=== PATIENT | male | born 1955 | race Caucasian/White ===

== ENCOUNTER 2018-01-15 23:22 | Emergency (ER) | payer MEDICAID ==
[2018-01-15 23:29] VITALS: BMI 26.5
--- NOTE | 2018-01-16 01:05 | DR.BITE ---
HPI - Time Seen Time seen: 01:50 - PCP Primary Care Physician: NATALIIA - HPI Comment HPI Comment: PATIENT APPLIED BLEECH TO LESION. REDNESS SPREADING AND PAIN GETTING WORSE. - Complaint/Symptoms Chief Complaint Doctor Comments: REDNESS AND PAIN RT NECK DUE TO POSSIBLE SPIDER BITE TIMES 2 DAYS. Chief Complaint:: "I THINK I GOT BIT BY A SPIDER YESTERDAY AFTERNOON. I PUT BLEACH ON IT.". HOLDING RIGHT NECK WITH HANKCURCHEIF. - Nurses notes reviewed Nurses Notes Review: Yes - Source History Provided: Patient - Mode of Arrival Mode of Arrival: Ambulatory - Duration Duration: Constant Duration: Days - Location Location: Neck - Timing Onset of Chief Complaint: 01/14/18 ago: Days - Context Caused by: Spider Symptoms: Pruritis, Rash, Redness, Papule wound Immunization Status of Animal: Not Applicable - Severity Pain: Moderate Puritis Severity: Moderate SOB Severity: None - Associated signs and symptoms Associated signs and symptoms: Redness, Swelling PMH - PMH Past Medical History: Yes Past Medical History: Hypertension Past Surgical History: Yes Surgical History: Cholecystectomy - Family History History of Family Medical Conditions: Yes Family Medical History: Cancer, Hypertension - Social History Does patient currently use any type of tobacco product: No Have you used tobacco products in the last 12 months: No Type of Tobacco Use: None Does any household member use tobacco: No Alcohol Use: None Do you use any recreational Drugs:: No Lives With: Alone Lives Where: Home - infectious screening Have you traveled outside the country in the last 6 months?: No Isolation: Standard ROS - Review of Systems Constitutional: No Symptoms Reported Eyes: No Symptoms Reported ENTM: No Symptoms Reported Respiratoy: No Symptoms Reported Cardiovascular: No Symptoms Reported Gastrointestinal/Abdominal: No Symptoms Reported Genitourinary: No Symptoms Reported Neurological: No Symptoms Reported Musculoskeletal: Neck Pain, Right Integumentary: Rash (RT NECK WITH PUSTULE THAT IS DRAINED AND REDNESS RT NECK THAT IS WARM AND TENDER.) Hematologic/Lymphatic: No Symptoms Reported Endocrine: No Symptoms Reported All Other Systems: Reviewed and Negative PE - Vital Signs Vital Signs: Temp Pulse Pulse Resp BP BP BP 01/16/18 01:19 82 166/95 01/15/18 23:24 99.0 F 75 18 184/91 06/08/16 13:35 146/85 05/28/15 01:00 189/92 08/11/13 20:17 119/82 Pulse Ox 01/16/18 01:19 99 01/15/18 23:24 96 06/08/16 13:35 05/28/15 01:00 08/11/13 20:17 - Constitutional Limitations: No Limitations General Appearance: Alert - Head Head Exam: Normal Inspection - Eyes Eye exam: Normal Appearance - ENT ENT Exam: Normal External Ear Exam - Neck Neck Exam: Trachea Midline, Tenderness (AND REDNESS RT NECK.) - Chest Chest Inspection: Symmetric Chest Wall Rise - Respiratory Respiratory Exam: Normal Lung Sounds Bilat Respiratory Exam: Bilateral Clear to Auscultation - Cardiovascular Cardiovascular Exam: Regular Rate, Normal Rhythm, Normal Heart Sounds - Abdominal Exam Abdominal Exam: Normal Bowel Sounds, Soft. negative: Tenderness - Extremities Extremities Exam: Normal Inspection - Back Back Exam: Normal Inspection - Neurologic Neurological Exam: Alert, Oriented X3 - Skin Skin Exam: Erythema Type of Lesion: Rash Distribution: Neck Description: Tenderness, Papular MDM - Differential Diagnosis Differential Diagnosis: Cellulitis Course - Treatment Treatment: SEE ORDERS. - Education/Counseling Education/Counseling: Patient, Education Educated On: Diagnosis, Needs for Follow Up - Diagnosis Discharge Problem: Cellulitis Qualifiers: Site of cellulitis: neck Qualified Code(s): L03.221 - Cellulitis of neck - Discharge Plan Disposition: 01 HOME, SELF-CARE Condition: Stable Prescriptions: Ibuprofen [MOTRIN TAB 600 MG *] 600 mg PO TID PRN #20 tab PRN Reason: Pain/Inflammation Sulfamethoxazole-Trimethoprim [BACTRIM DS TAB 800/160 MG *] 1 tab PO BID #20 tab - Follow ups/Referrals Follow ups/Referrals: FLAVIA WILLIAM [Primary Care Provider] - 01/16/18 - Instructions Instructions: Cellulitis, Adult, [id number] Additional Instructions: RETURN TO ED IF WORSE.
[2018-01-16] MEDS ORDERED: BACTRIM DS TAB PO ONE ×2 (01:06→01:10)
[2018-01-16] MEDS ORDERED: MOTRIN TAB 600 MG PO ONE ×2 (01:08→01:10)
[2018-01-16 01:20] VITALS: BP 166/95
== END 2018-01-16 01:19 | disposition home or self-care (01) ==
LOC: ER 23:34
DX: L03.221 Cellulitis of neck (principal)
CPT/HCPCS: 99282

== ENCOUNTER 2021-07-27 15:30 | Inpatient (IN) ==
[2021-07-27 16:00] VITALS: BMI 20.3
--- NOTE | 2021-07-27 17:41 | DR.AMS ---
HPI Time Seen Time Seen by Provider: 07/27/21 17:16 PCP Primary Care Physician: pascual frazier and daniel spaulding HPI Comment HPI Comment: Pt. is a 65 y/o male who was arrived via EMS as family could no longer take care of him and would like him placed in a fdc. He has a hx. of cancer (? primary of colon) with metastasis. He has no c/o currently and denies any distress. Complaint Chief Complaint:: verbal interaction limited as pt is extremely weak vocally. he has a history of ca with mets. he is on o2 at home and has not ate for several days. ems states that family has expressed that they are not able to provide care for this patient at home at this time. pt does have visiting nurses but is not under hospice Self Treatment fo Chief Complaint: takes his meds and uses home o2 COVID-19 Coronavirus risk:travel/contact w/high risk person: No Has patient experienced Coronavirus symptoms: No Reviewed Nurses Notes Reviewed: Yes Source History Provided: Patient and EMS Mode of Arrival Mode of Arrival: EMS Timing Onset of Chief Complaint: 07/27/21 Symptom Onset: Unknown PMH PMH Past Medical History: Yes Past Medical History: Hypertension Past Medical History Comment: cancer and mets Past Surgical History: Yes Surgical History: Abdominal Surgery, Cholecystectomy and Other Past Surgical History Comment: port cath to the right chest Family History History of Family Medical Conditions: Yes Family Medical History: Hypertension Social History Type of Tobacco Use: None Alcohol Use: None Do you use any recreational Drugs:: No Lives With: Family Lives Where: Home Travel Risk Coronavirus risk:travel/contact w/high risk person: No Has patient experienced Coronavirus symptoms: No Infectious screening In the last 2 months have you had wt loss of >10#?: NO Have you traveled outside the country in the last 6 months?: No Isolation: Standard ROS Review of Systems Constitutional: Weakness Eyes: No Symptoms Reported ENTM: No Symptoms Reported Respiratoy: No Symptoms Reported Cardiovascular: No Symptoms Reported Gastrointestinal/Abdominal: No Symptoms Reported Genitourinary: No Symptoms Reported Neurological: No Symptoms Reported Musculoskeletal: No Symptoms Reported Integumentary: No Symptoms Reported Hematologic/Lymphatic: No Symptoms Reported Endocrine: No Symptoms Reported Psychiatric: No Symptoms Reported PE Vitals Vital Signs: Temp Pulse Resp BP BP BP Pulse Ox 07/27/21 15:50 98.0 F 86 24 126/81 91 L 07/22/21 16:46 122/73 05/18/21 20:19 145/70 04/21/21 19:17 120/87 General Limitations: No Limitations General Appearance: Alert and In No Apparent Distress Head Head Exam: Normal Inspection, Atraumatic and Normocephalic Eyes Eye exam: Normal Appearance and EOMI ENT ENT Exam: Normal Exam, Normal Oropharynx, Normal External Ear Exam and Mucous Membranes Moist Neck Neck Exam: Normal Inspection, Full ROM and Trachea Midline Chest Chest Inspection: Normal Inspection and Symmetric Chest Wall Rise Respiratory Respiratory Exam: Normal Lung Sounds Bilat Cardiovascular Cardiovascular Exam: Regular Rate, Normal Rhythm, Normal Heart Sounds, +S1 and +S2 Abdominal Exam Abdominal Exam: Normal Inspection, Normal Bowel Sounds, Soft and Other (He has a colostomy in the LLQ area. ) Extremities Extremities Exam: Normal Inspection Back Back Exam: Normal Inspection and Full ROM Neurological Neurological Exam: Alert and Oriented X3 Psychological Psychiatric Exam: Normal Mood and Flat Affect Skin Skin Exam: Intact and Normal Color COURSE Reevaluation 1st: Unchanged Education/Counseling Education/Counseling: Patient, Education and Counseling Educated On: Treatment, Diagnosis, Prognosis and Needs for Follow Up ROR Labs Reviewed Result Diagrams: 07/27/21 18:09 07/27/21 18:09 Laboratory: WBC 8.3 X10^3/uL (3.6-10.0) 07/27/21 18:09 RBC 5.60 X10^6/uL (4.7-6.0) 07/27/21 18:09 Hgb 16.0 g/dL (13.5-18.0) 07/27/21 18:09 Hct 48.1 % (42.0-54.0) 07/27/21 18:09 MCV 85.9 fL (80.0-100.0) 07/27/21 18:09 MCH 28.6 pg (27.0-34.0) 07/27/21 18:09 MCHC 33.3 g/dL (33.0-35.0) 07/27/21 18:09 RDW 16.2 % (11.6-16.5) 07/27/21 18:09 Plt Count 135 X10^3/uL (150.0-450.0) L 07/27/21 18:09 MPV 8.9 fL (7.4-11.0) 07/27/21 18:09 Neut % (Auto) 86.2 % (42.0-75.0) H 07/27/21 18:09 Lymph % (Auto) 7.0 % (21.0-51.0) L 07/27/21 18:09 [place] % (Auto) 4.9 % (0.0-13.0) 07/27/21 18:09 Eos % (Auto) 0.8 % (0.9-2.9) L 07/27/21 18:09 Baso % (Auto) 1.1 % (0.2-1.0) H 07/27/21 18:09 Neut # (Auto) 7.1 x10^3/uL (2.2-4.8) H 07/27/21 18:09 Lymph # (Auto) 0.6 X10^3/uL (1.3-2.9) L 07/27/21 18:09 [place] # (Auto) 0.4 x10^3/uL (0.3-0.8) 07/27/21 18:09 Eos # (Auto) 0.1 x10^3/uL (0.0-0.2) 07/27/21 18:09 Baso # (Auto) 0.1 X10^3/uL (0.0-0.1) 07/27/21 18:09 Absolute Nucleated RBC 0.1 /100WBC 07/27/21 18:09 Sodium 140 mmol/L (136-145) 07/27/21 18:09 Corrected Sodium TNP 07/27/21 18:09 Potassium 4.0 mmol/L (3.5-5.1) 07/27/21 18:09 Chloride 103 mmol/L (98-107) 07/27/21 18:09 Carbon Dioxide 34.9 mmol/L (21-32) H 07/27/21 18:09 BUN 17 mg/dL (7-18) 07/27/21 18:09 Creatinine 0.92 mg/dL (0.70-1.30) 07/27/21 18:09 Est GFR (MDRD) Af Amer > 60 (>60) 07/27/21 18:09 Est GFR (MDRD) Non-Af > 60 (>60) 07/27/21 18:09 Glucose 107 mg/dL (65-99) H 07/27/21 18:09 Calcium 10.3 mg/dL (8.5-10.1) H 07/27/21 18:09 Corrected Calcium 11.7 mg/dL (8.5-10.1) H 07/27/21 18:09 Total Bilirubin 0.50 mg/dL (0.2-1.0) 07/27/21 18:09 AST 120 Units/L (15-37) H 07/27/21 18:09 ALT 40 Units/L (12-78) 07/27/21 18:09 Alkaline Phosphatase 654 Units/L (46-116) H 07/27/21 18:09 Total Protein 7.1 g/dL (6.4-8.2) 07/27/21 18:09 Albumin 2.3 g/dL (3.4-5.0) L 07/27/21 18:09 Globulin 4.8 g/dL (2.5-4.5) H 07/27/21 18:09 Albumin/Globulin Ratio 0.5 Ratio (1.1-2.1) L 07/27/21 18:09 Opioid Opioid Risk Tool Age (Pierre box if 16-45): No History of Preadolescent Sexual Abuse: No Total: 0 Total Score Risk Category: Low Risk Copyright: Panfilo JOHN predicting aberrant behaviors Diagnosis Discharge Problem: Adult failure to thrive Colon cancer Qualifiers: Colon location: unspecified part of colon Qualified Code(s): C18.9 - Malignant neoplasm of colon, unspecified ADDITIONAL NOTES Additional Notes Additional Notes: Name: Shantel DYER#: [id number]: [id number] : 1955Sex: MLocation: ER Order Number(s): [id number](s):CHEST, 1 VIEW Ordering Physician: MELVIN ISRAEL Primary Care: LARAD,None Service Date: 07/27/21 Service Time: 1735 CHEST, 1 VIEW HISTORY: AMS, FAILURE TO THRIVE Study: Single view of the chest. Comparison:August 24, 2020 Findings: The cardiomediastinal silhouette is normal. Bilateral interstitial prominence, possible early alveolar infiltrates. Findings COPD. Osseous structures demonstrate no acute abnormality. IMPRESSION: 1. Bilateral interstitial prominence and early alveolar infiltrates. Findings may represent atypical infection, including viral etiologies. Electronically signed by: MARLEY SCHAFFER (Jul 27, 2021 18:01:44) Report Electronically signed: 07/27/21 [id number] CC: Melvin Israel
--- NOTE | 2021-07-27 18:03 | RAD ---
CHEST, 1 VIEWHISTORY: AMS, FAILURE TO THRIVEStudy: Single view of the chest.Comparison:August 24, 2020Findings:The cardiomediastinal silhouette is normal. Bilateral interstitial prominence, possible early alveolar infiltrates. Findings COPD. Osseous structures demonstrate no acute abnormality.IMPRESSION:1. Bilateral interstitial prominence and early alveolar infiltrates. Findings may represent atypical infection, including viral etiologies.Electronically signed by: MARLEY SCHAFFER (Jul 27, 2021 18:01:44)
[2021-07-27 18:44] LABS: BASOPHILS # (AUTO) 0.1 X10^3/uL (0.0-0.1); BASOPHILS % (AUTO) 1.1 % (0.2-1.0); EOSINOPHILS # (AUTO) 0.1 x10^3/uL (0.0-0.2); EOSINOPHILS % (AUTO) 0.8 % (0.9-2.9); HEMATOCRIT 48.1 % (42.0-54.0); LYMPHOCYTES # (AUTO) 0.6 X10^3/uL (1.3-2.9); MEAN CORPUSCULAR HEMOGLOBIN 28.6 pg (27.0-34.0); MEAN CORPUSCULAR HGB CONC 33.3 g/dL (33.0-35.0); MEAN CORPUSCULAR VOLUME 85.9 fL (80.0-100.0); MEAN PLATELET VOLUME 8.9 fL (7.4-11.0); MONOCYTES # (AUTO) 0.4 x10^3/uL (0.3-0.8); MONOCYTES % (AUTO) 4.9 % (0.0-13.0); NEUTROPHILS # (AUTO) 7.1 x10^3/uL (2.2-4.8); NEUTROPHILS % (AUTO) 86.2 % (42.0-75.0); PLATELET COUNT 135 X10^3/uL (150.0-450.0); RED CELL DISTRIBUTION WIDTH 16.2 % (11.6-16.5); WHITE BLOOD COUNT 8.3 X10^3/uL (3.6-10.0)
[2021-07-27 18:46] LABS: ALANINE AMINOTRANSFERASE 40 Units/L (12-78); ALBUMIN 2.3 g/dL (3.4-5.0); ALKALINE PHOSPHATASE 654 Units/L (46-116); ASPARTATE AMINO TRANSFERASE 120 Units/L (15-37); BLOOD UREA NITROGEN 17 mg/dL (7-18); CALCIUM 10.3 mg/dL (8.5-10.1); CARBON DIOXIDE 34.9 mmol/L (21-32); CHLORIDE 103 mmol/L (98-107); COR CA(FOR HYPOALB) 11.7 mg/dL (8.5-10.1); CREATININE 0.92 mg/dL (0.70-1.30); SODIUM 140 mmol/L (136-145); TOTAL PROTEIN 7.1 g/dL (6.4-8.2); eGFR NON BLACK RACES > 60 (>60)
[2021-07-27] MEDS ORDERED: ATIVAN INJ 2 MG VIAL ONE (19:45)
[2021-07-27] MEDS ORDERED: ATIVAN INJ 2 MG VIAL IVP ONE (21:29)
[2021-07-27] MEDS: ROXICODONE TAB 15 MG PO PRN (22:42)
[2021-07-27] MEDS: COLACE CAP 100 MG PO SCH (22:43)
[2021-07-28] MEDS: ATIVAN TAB 1 MG PO PRN ×4 (00:06→18:25)
[2021-07-28] MEDS: ROXICODONE TAB 15 MG PO PRN ×3 (05:46→18:25)
[2021-07-28] MEDS ORDERED: PULMICORT NEB TX 0.5 MG NEB ONE (07:54)
[2021-07-28] MEDS: PULMICORT NEB TX 0.5 MG NEB SCH ×2 (08:00→19:45)
[2021-07-28] MEDS: BROVANA IN SCH ×2 (08:00→19:45)
[2021-07-28] MEDS ORDERED: PROTONIX TAB 40 MG PO SCH (09:00)
[2021-07-28] MEDS: COLACE CAP 100 MG PO SCH ×2 (11:45→21:07)
[2021-07-28] MEDS ORDERED: TUSSIONEX PENNKINETIC SUSP PO PRN (14:36)
[2021-07-28] MEDS: LOVENOX INJ 40 MG SYR SC SCH (17:07)
[2021-07-28] MEDS: ROBITUSSIN DM PO SCH ×3 (17:08→21:07)
--- NOTE | 2021-07-28 17:35 | DR.H&P ---
H&P - History & Physical for Day of: H&P Date: 07/27/21 - Chief Complaint Chief Complaint: AMS, DEHYDRATION, ADULT FAILURE TO THRIVE - History of Present Illness History of Present Illness: PT IS 65 WM ER ADMISSION WITH REPORTS PER EMS, PT HAS COLORECTAL CANCER WITH METS UNDER THE CARE OF HIS ELDERLY MOTHER. FAMILY REPORTS THEY CANNOT MEET HIS NEEDS AT HOME AND WISH TO SEEK NH PLACEMENT. PT HAD COVID PNEUMONIA ON ADMISSION. PT ADMITTED FOR TREATMENT OF ACUTE ILLNESS THEN PLACEMENT IN LTC FACILITY. - Past Medical History Past Medical History: Hypertension Additional Medical History: COLON CANCER - Past Surgical History Surgical History: Bowel Resection, Cholecystectomy, Other - Family History Family Medical History: Hypertension - Social History Does patient currently use any type of tobacco product: No Have you used tobacco products in the last 12 months: No Type of Tobacco Use: None Alcohol Use: None Drug Use: None - Medications Home Medications: acetaminophen [From Tylenol] Adverse Reaction (Verified 07/27/21 15:44) aspirin Adverse Reaction (Verified 07/27/21 15:44) cephalexin [From Keflex] Adverse Reaction (Verified 07/27/21 15:44) diphenhydramine [From Benadryl] Adverse Reaction (Verified 07/27/21 15:44) fentanyl Adverse Reaction (Verified 07/27/21 15:44) methadone Adverse Reaction (Verified 07/27/21 15:44) morphine Adverse Reaction (Verified 07/27/21 15:44) CONTINUE taking the following medications diazepam 10 mg PO TID PRN 07/27/21 [History] losartan 50 mg PO DAILY 07/27/21 [History] oxycodone 30 mg PO Q6H PRN 07/27/21 [History] - Review of Systems Constitutional: Weakness, Malaise Eyes: No Symptoms Reported ENT: No Symptoms Reported Respiratory: Shortness of Breath Cardiovascular: No Symptoms Reported Gastrointestinal: Other (APPETITE LOSS) Genitourinary: Incontinence Musculoskeletal: Other (MUSCLE WEAKNESS, ATROPHY) Skin: Other (POOR TURGOR) Neurological: Weakness, Confusion - Physical Exam Vital Signs: Temperature 98.2 F Pulse Rate [Right] 90 Pulse Rate 86 Respiratory Rate 16 Blood Pressure [Right Arm] 147/87 Blood Pressure [Left Arm] 145/70 Blood Pressure 126/81 O2 Sat by Pulse Oximetry 89 Oriented: Other (UNRESPONSIVE) Eyes: negative: Normal Ear: negative: Normal Nose: Normal Throat: Dry Respiratory: Diminished Throughout Cardiovascular: Normal. negative: Edema Auscultation: Bowel Sounds: Decreased Tenderness: negative: Rebound, Guarding Skin: Decreased Turgur Musculoskeletal: Motor Deficit, Sensory Deficit, Instability Psychiatric: Other (UNRESPONSIVE ON EXAM ) Speech Pattern: Aphasic - Assessment/Plan (1) Pneumonia due to COVID-19 virus Status: Acute Plan: ADMIT, IV HYDRATION WITH STRICT I&OS. IV ATBX, BC X2 ON ADMISSION. CXR ON ADMISSION, VERIFY HOME MEDICATION. VERIFY CODE STATUS, PHARMACY CONSULT FOR TPN. SUPPLEMENATL O2, CARDIAC MONITORING, RT. CASE MANAGEMENT CONSULT FOR NH PLACEMENT PER FAMILY REQUEST, RECOMMEND HOSPICE (2) Adult failure to thrive Status: Acute (3) Colon cancer Qualifiers: Colon location: unspecified part of colon Qualified Code(s): C18.9 - Malignant neoplasm of colon, unspecified Status: Acute (4) Emaciated Status: Acute - Allergies Allergies/Adverse Reactions: Allergies Allergy/AdvReac Type Severity Reaction Status Date / Time acetaminophen [From Tylenol] AdvReac Verified 07/27/21 15:44 aspirin AdvReac Verified 07/27/21 15:44 cephalexin [From Keflex] AdvReac Verified 07/27/21 15:44 diphenhydramine AdvReac Verified 07/27/21 15:44 [From Benadryl] fentanyl AdvReac Verified 07/27/21 15:44 methadone AdvReac Verified 07/27/21 15:44 morphine AdvReac Verified 07/27/21 15:44
--- NOTE | 2021-07-28 17:43 | PCM.PROG ---
Progress Note - Progress Note for Day of Date of Exam: 07/28/21 - Subjective Subjective: PT IS 65 WM ER ADMISSION WITH COVID 19 PNEUMONIA AND HYPOXIA, WEAKNESS WITH ADULT FAILURE TO THRIVE RELATED TO METASTATIC COLORECTAL CANCER. PT WAS UNRESPONSIVE THIS MORNING ON ASSESSMENT WITHOUT ANY MARKED RESPIRATORY DISTRESS. PT WAS ON NC FOR SUPPLEMENTAL O2, WITH O2 SAT 90%. BC OBTAINED ON ADMISSION, IV ATBX, IV HYDRATION. PHARMACY CONSULTED FOR TPN. FAMILY REQUESTING RESIDENTIAL PLACEMENT. PT IS EMACIATED WITHOUT RESPONSE TO PAIN OR VERBAL STIMULIS ON MORNING ROUNDS. RECOMMEND POSSIBLE HOSPICE PLACEMENT IF PT RECOVERS FROM ACUTE COVID PNEUMONIA. - Past Medical Family Social History Past Med/Fam/Surg Hx: No changes since H&P Allergies: Allergies acetaminophen [From Tylenol] Adverse Reaction (Verified 07/27/21 15:44) aspirin Adverse Reaction (Verified 07/27/21 15:44) cephalexin [From Keflex] Adverse Reaction (Verified 07/27/21 15:44) diphenhydramine [From Benadryl] Adverse Reaction (Verified 07/27/21 15:44) fentanyl Adverse Reaction (Verified 07/27/21 15:44) methadone Adverse Reaction (Verified 07/27/21 15:44) morphine Adverse Reaction (Verified 07/27/21 15:44) - Review of Systems ROS: No change since H&P - Vital Signs and I&O's Vital Signs: Temperature 98.2 F Pulse Rate [Right] 90 Pulse Rate 86 Respiratory Rate 16 Blood Pressure [Right Arm] 147/87 Blood Pressure [Left Arm] 145/70 Blood Pressure 126/81 O2 Sat by Pulse Oximetry 89 Intake and Output: Intake & Output 07/26/21 07/27/21 07/28/21 07/29/21 11:59 11:59 11:59 11:59 Intake Total 320 / 320 Output Total 3 / 3 Balance 317 / 317 - Physical Exam Oriented: Other (UNRESPONSIVE) Eyes: negative: Normal Ear: negative: Normal Nose: Normal Throat: Dry Respiratory: Diminished Cardiovascular: Normal. negative: Edema Auscultation: Bowel Sounds: Decreased Tenderness: negative: Rebound, Guarding Skin: Decreased Turgur Musculoskeletal: Motor Deficit, Sensory Deficit, Instability Psychiatric: Other (UNRESPONSIVE ON EXAM ) Speech Pattern: Aphasic - Laboratory and Diagnostics Result Diagrams: 07/27/21 18:09 07/27/21 18:09 Labs: Laboratory WBC 8.3 X10^3/uL (3.6-10.0) 07/27/21 18:09 RBC 5.60 X10^6/uL (4.7-6.0) 07/27/21 18:09 Hgb 16.0 g/dL (13.5-18.0) 07/27/21 18:09 Hct 48.1 % (42.0-54.0) 07/27/21 18:09 MCV 85.9 fL (80.0-100.0) 07/27/21 18:09 MCH 28.6 pg (27.0-34.0) 07/27/21 18:09 MCHC 33.3 g/dL (33.0-35.0) 07/27/21 18:09 RDW 16.2 % (11.6-16.5) 07/27/21 18:09 Plt Count 135 X10^3/uL (150.0-450.0) L 07/27/21 18:09 MPV 8.9 fL (7.4-11.0) 07/27/21 18:09 Neut % (Auto) 86.2 % (42.0-75.0) H 07/27/21 18:09 Lymph % (Auto) 7.0 % (21.0-51.0) L 07/27/21 18:09 [place] % (Auto) 4.9 % (0.0-13.0) 07/27/21 18:09 Eos % (Auto) 0.8 % (0.9-2.9) L 07/27/21 18:09 Baso % (Auto) 1.1 % (0.2-1.0) H 07/27/21 18:09 Neut # (Auto) 7.1 x10^3/uL (2.2-4.8) H 07/27/21 18:09 Lymph # (Auto) 0.6 X10^3/uL (1.3-2.9) L 07/27/21 18:09 [place] # (Auto) 0.4 x10^3/uL (0.3-0.8) 07/27/21 18:09 Eos # (Auto) 0.1 x10^3/uL (0.0-0.2) 07/27/21 18:09 Baso # (Auto) 0.1 X10^3/uL (0.0-0.1) 07/27/21 18:09 Absolute Nucleated RBC 0.1 /100WBC 07/27/21 18:09 Sodium 140 mmol/L (136-145) 07/27/21 18:09 Corrected Sodium TNP 07/27/21 18:09 Potassium 4.0 mmol/L (3.5-5.1) 07/27/21 18:09 Chloride 103 mmol/L (98-107) 07/27/21 18:09 Carbon Dioxide 34.9 mmol/L (21-32) H 07/27/21 18:09 BUN 17 mg/dL (7-18) 07/27/21 18:09 Creatinine 0.92 mg/dL (0.70-1.30) 07/27/21 18:09 Est GFR (MDRD) Af Amer > 60 (>60) 07/27/21 18:09 Est GFR (MDRD) Non-Af > 60 (>60) 07/27/21 18:09 Glucose 107 mg/dL (65-99) H 07/27/21 18:09 Calcium 10.3 mg/dL (8.5-10.1) H 07/27/21 18:09 Corrected Calcium 11.7 mg/dL (8.5-10.1) H 07/27/21 18:09 Total Bilirubin 0.50 mg/dL (0.2-1.0) 07/27/21 18:09 AST 120 Units/L (15-37) H 07/27/21 18:09 ALT 40 Units/L (12-78) 07/27/21 18:09 Alkaline Phosphatase 654 Units/L (46-116) H 07/27/21 18:09 Total Protein 7.1 g/dL (6.4-8.2) 07/27/21 18:09 Albumin 2.3 g/dL (3.4-5.0) L 07/27/21 18:09 Globulin 4.8 g/dL (2.5-4.5) H 07/27/21 18:09 Albumin/Globulin Ratio 0.5 Ratio (1.1-2.1) L 07/27/21 18:09 SARS-CoV-2 (PCR) Positive (NEGATIVE) A 07/27/21 19:51 Influenza Type A (PCR) Negative (NEGATIVE) 07/27/21 19:51 Influenza Type B (PCR) Negative (NEGATIVE) 07/27/21 19:51 RSV (PCR) Negative (NEGATIVE) 07/27/21 19:51 - Plan (1) Pneumonia due to COVID-19 virus Status: Acute Plan: IV HYDRATION WITH STRICT I&OS. IV ATBX, BC X2 ON ADMISSION. CXR ON ADMISSION, VERIFY HOME MEDICATION. VERIFY CODE STATUS, PHARMACY CONSULT FOR TPN. SUPPLEMENATL O2, CARDIAC MONITORING, RT. CASE MANAGEMENT CONSULT FOR NH PLACEMENT PER FAMILY REQUEST, RECOMMEND HOSPICE (2) Adult failure to thrive Status: Acute (3) Colon cancer Status: Acute Qualifiers: Colon location: unspecified part of colon Qualified Code(s): C18.9 - Malignant neoplasm of colon, unspecified (4) Emaciated Status: Acute
[2021-07-28] MEDS ORDERED: PHARMACY CONSULT - TPN XX SCH (18:00)
[2021-07-28] MEDS: PROTONIX INJ 40 MG VIAL IVP SCH (18:30)
[2021-07-28] MEDS: ZITHROMAX INJ 500 MG VIAL 250 MG in D5W 250 ML IV 250 ML IV SCH (18:30)
[2021-07-29] MEDS: ROXICODONE TAB 15 MG PO PRN ×2 (01:28→09:15)
[2021-07-29 04:36] LABS: ABG BASE EXCESS 7.6 mmol/L (-2.0-2.0)
[2021-07-29 04:38] LABS: ABG ALLEN TEST POS; ABG HCO3 32.7 mmol/L (22-26)
[2021-07-29 06:31] LABS: BASOPHILS % (AUTO) 0.1 % (0.2-1.0); EOSINOPHILS # (AUTO) 0.1 x10^3/uL (0.0-0.2); HEMATOCRIT 45.1 % (42.0-54.0); LYMPHOCYTES # (AUTO) 0.6 X10^3/uL (1.3-2.9); MEAN CORPUSCULAR HEMOGLOBIN 28.7 pg (27.0-34.0); MEAN CORPUSCULAR HGB CONC 33.3 g/dL (33.0-35.0); MEAN PLATELET VOLUME 8.8 fL (7.4-11.0); MONOCYTES # (AUTO) 0.5 x10^3/uL (0.3-0.8); NEUTROPHILS # (AUTO) 6.1 x10^3/uL (2.2-4.8); NEUTROPHILS % (AUTO) 83.9 % (42.0-75.0); PLATELET COUNT 102 X10^3/uL (150.0-450.0); RED BLOOD COUNT 5.24 X10^6/uL (4.7-6.0); RED CELL DISTRIBUTION WIDTH 16.2 % (11.6-16.5); WHITE BLOOD COUNT 7.3 X10^3/uL (3.6-10.0)
[2021-07-29 06:42] LABS: ALANINE AMINOTRANSFERASE 37 Units/L (12-78); ALBUMIN 1.9 g/dL (3.4-5.0); ALKALINE PHOSPHATASE 630 Units/L (46-116); ASPARTATE AMINO TRANSFERASE 108 Units/L (15-37); BLOOD UREA NITROGEN 18 mg/dL (7-18); CALCIUM 10.2 mg/dL (8.5-10.1); CARBON DIOXIDE 32.6 mmol/L (21-32); CHLORIDE 105 mmol/L (98-107); COR CA(FOR HYPOALB) 11.9 mg/dL (8.5-10.1); COR NA(FOR HYPERGLY) 141 mmol/L (136-145); CREATININE 0.68 mg/dL (0.70-1.30); SODIUM 141 mmol/L (136-145); eGFR NON BLACK RACES > 60 (>60)
--- NOTE | 2021-07-29 06:42 | RAD ---
HISTORYPNEUMONIASTUDYCHEST, 1 [id number]/15/2021.TECHNIQUEAP view of the chestFINDINGSRight chest wall port with tip in good position. Cardiac and mediastinal contours are within normal limits. Interval worsening of bilateral airspace opacities, worst in the left mid to lower lung. Suspect moderate left pleural effusion. No pneumothorax.IMPRESSIONInterval worsening of bilateral pneumonia. Suspect moderate left pleural effusion.Electronically signed by: Aaron Gutierres (Jul 29, 2021 06:40:52)
[2021-07-29] MEDS: BROVANA IN SCH ×2 (08:29→20:00)
[2021-07-29] MEDS: PULMICORT NEB TX 0.5 MG NEB SCH ×2 (08:29→20:00)
[2021-07-29] MEDS ORDERED: LASIX IVP ONE (08:49)
[2021-07-29] MEDS: CLINIMIX 5 %/20 % 1,000 ML with MVI INJ (ADULT) 10 ML IV SCH ×2 (09:14)
[2021-07-29] MEDS: ATIVAN TAB 1 MG PO PRN (09:14)
[2021-07-29] MEDS: LOVENOX INJ 40 MG SYR SC SCH (09:15)
[2021-07-29] MEDS: ZITHROMAX INJ 500 MG VIAL 250 MG in D5W 250 ML IV 250 ML IV SCH (09:15)
[2021-07-29] MEDS: COLACE CAP 100 MG PO SCH (09:16)
[2021-07-29] MEDS: PROTONIX INJ 40 MG VIAL IVP SCH (09:16)
[2021-07-29] MEDS: ROBITUSSIN DM PO SCH (09:16)
[2021-07-29] MEDS ORDERED: ATIVAN INJ 2 MG VIAL IVP PRN (09:51)
[2021-07-29] MEDS ORDERED: ROBITUSSIN DM PO PRN (10:00)
[2021-07-29] MEDS: MORPHINE SULFATE INJ 2 MG INJ IVP PRN ×3 (11:42→21:00)
[2021-07-29] MEDS ORDERED: HumuLIN R SUBCUT PRN (15:29)
[2021-07-29] MEDS ORDERED: DEXTROSE 10% 1,000 ML IV PRN (15:29)
[2021-07-29 15:48] LABS: MAGNESIUM 2.2 mg/dL (1.7-2.9); PHOSPHORUS 3.2 mg/dL (2.6-4.7)
[2021-07-30] MEDS: CLINIMIX 5 %/20 % 1,000 ML with MVI INJ (ADULT) 10 ML IV SCH ×6 (02:51→20:31)
[2021-07-30 05:29] LABS: MEAN CORPUSCULAR VOLUME 86.1 fL (80.0-100.0)
[2021-07-30 05:31] LABS: BASOPHILS % (AUTO) 0.3 % (0.2-1.0); EOSINOPHILS % (AUTO) 0.5 % (0.9-2.9); HEMATOCRIT 51.7 % (42.0-54.0); HEMOGLOBIN 17.3 g/dL (13.5-18.0); LYMPHOCYTES # (AUTO) 0.6 X10^3/uL (1.3-2.9); LYMPHOCYTES % (AUTO) 6.2 % (21.0-51.0); MEAN CORPUSCULAR HEMOGLOBIN 28.9 pg (27.0-34.0); MEAN CORPUSCULAR HGB CONC 33.6 g/dL (33.0-35.0); MEAN PLATELET VOLUME 8.7 fL (7.4-11.0); MONOCYTES # (AUTO) 0.6 x10^3/uL (0.3-0.8); MONOCYTES % (AUTO) 5.9 % (0.0-13.0); NEUTROPHILS # (AUTO) 8.3 x10^3/uL (2.2-4.8); NEUTROPHILS % (AUTO) 87.1 % (42.0-75.0); PLATELET COUNT 108 X10^3/uL (150.0-450.0); RED CELL DISTRIBUTION WIDTH 16.4 % (11.6-16.5); WHITE BLOOD COUNT 9.5 X10^3/uL (3.6-10.0)
[2021-07-30 05:35] LABS: PREALBUMIN 6.4 mg/dL (18-35.7)
[2021-07-30 05:44] LABS: ALANINE AMINOTRANSFERASE 39 Units/L (12-78); ALKALINE PHOSPHATASE 648 Units/L (46-116); ASPARTATE AMINO TRANSFERASE 110 Units/L (15-37); BLOOD UREA NITROGEN 19 mg/dL (7-18); CALCIUM 10.5 mg/dL (8.5-10.1); CHLORIDE 103 mmol/L (98-107); COR CA(FOR HYPOALB) 12.1 mg/dL (8.5-10.1); COR NA(FOR HYPERGLY) 142 mmol/L (136-145); CREATININE 0.72 mg/dL (0.70-1.30); SODIUM 141 mmol/L (136-145); TOTAL PROTEIN 6.5 g/dL (6.4-8.2); eGFR NON BLACK RACES > 60 (>60)
--- NOTE | 2021-07-30 07:16 | RAD ---
HISTORYCOVID PNEUMONIASTUDYCHEST x-ray, 1 VIEWCOMPARISONX-ray 07/29/2021FINDINGSCentral venous catheter terminates in the region of the distal SVC. Heart is normal in size. Bilateral lung infiltrates are likely similar to prior study. There is a small left pleural effusion that may be improved. No pneumothorax is seen.IMPRESSIONLung infiltrates are similar to prior study.Likely improvement of small left pleural effusion.Electronically signed by: David Farah (Jul 30, 2021 07:13:48)
[2021-07-30] MEDS ORDERED: LR 1000 ML IV 1,000 ML IV ONE (08:01)
[2021-07-30] MEDS: BROVANA IN SCH ×2 (08:52→20:10)
[2021-07-30] MEDS: PULMICORT NEB TX 0.5 MG NEB SCH ×2 (08:52→20:10)
[2021-07-30] MEDS: PROTONIX INJ 40 MG VIAL IVP SCH (09:14)
[2021-07-30] MEDS: ZITHROMAX INJ 500 MG VIAL 250 MG in D5W 250 ML IV 250 ML IV SCH (09:15)
[2021-07-30] MEDS: LOVENOX INJ 40 MG SYR SC SCH (09:25)
[2021-07-30] MEDS: MORPHINE SULFATE INJ 2 MG INJ IVP PRN ×2 (16:13→20:31)
[2021-07-31] MEDS: MORPHINE SULFATE INJ 2 MG INJ IVP PRN ×3 (03:38→23:48)
[2021-07-31 05:41] LABS: BASOPHILS # (AUTO) 0.1 X10^3/uL (0.0-0.1); BASOPHILS % (AUTO) 0.4 % (0.2-1.0); EOSINOPHILS # (AUTO) 0.1 x10^3/uL (0.0-0.2); EOSINOPHILS % (AUTO) 0.4 % (0.9-2.9); HEMOGLOBIN 15.9 g/dL (13.5-18.0); LYMPHOCYTES # (AUTO) 0.6 X10^3/uL (1.3-2.9); LYMPHOCYTES % (AUTO) 3.8 % (21.0-51.0); MEAN CORPUSCULAR HEMOGLOBIN 28.1 pg (27.0-34.0); MEAN CORPUSCULAR HGB CONC 33.2 g/dL (33.0-35.0); MEAN CORPUSCULAR VOLUME 84.6 fL (80.0-100.0); MEAN PLATELET VOLUME 8.5 fL (7.4-11.0); MONOCYTES # (AUTO) 0.9 x10^3/uL (0.3-0.8); MONOCYTES % (AUTO) 5.4 % (0.0-13.0); NEUTROPHILS # (AUTO) 14.5 x10^3/uL (2.2-4.8); PLATELET COUNT 106 X10^3/uL (150.0-450.0); RED BLOOD COUNT 5.68 X10^6/uL (4.7-6.0); RED CELL DISTRIBUTION WIDTH 16.6 % (11.6-16.5); WHITE BLOOD COUNT 16.1 X10^3/uL (3.6-10.0)
[2021-07-31 06:04] LABS: ALANINE AMINOTRANSFERASE 42 Units/L (12-78); ALBUMIN 1.8 g/dL (3.4-5.0); ALKALINE PHOSPHATASE 627 Units/L (46-116); ASPARTATE AMINO TRANSFERASE 102 Units/L (15-37); BLOOD UREA NITROGEN 16 mg/dL (7-18); CALCIUM 10.4 mg/dL (8.5-10.1); CARBON DIOXIDE 34.1 mmol/L (21-32); CHLORIDE 105 mmol/L (98-107); COR CA(FOR HYPOALB) 12.2 mg/dL (8.5-10.1); COR NA(FOR HYPERGLY) 142 mmol/L (136-145); CREATININE 0.58 mg/dL (0.70-1.30); SODIUM 141 mmol/L (136-145); eGFR NON BLACK RACES > 60 (>60)
[2021-07-31] MEDS ORDERED: POTASSIUM CHLORIDE LIQ 20 MEQ UDC PO PRN (06:19)
[2021-07-31] MEDS ORDERED: K-RIDER 10 MEQ/NS 100 ML 10 MEQ/100 ML BAG IV PRN (06:19)
[2021-07-31] MEDS ORDERED: MICRO K EXTEN CAP 10 MEQ PO PRN (06:19)
[2021-07-31] MEDS ORDERED: POTASSIUM CHL 60 MEQ/NS 0.45% 500 ML IV PRN (06:19)
[2021-07-31] MEDS ORDERED: POTASSIUM CHL 40 MEQ/NS 0.45% 500 ML IV PRN (06:19)
[2021-07-31] MEDS ORDERED: KLOR-CON PO PRN (06:19)
[2021-07-31] MEDS ORDERED: K-DUR TAB 20 MEQ PO PRN (06:19)
[2021-07-31] MEDS: BROVANA IN SCH ×2 (08:55→19:30)
[2021-07-31] MEDS: PULMICORT NEB TX 0.5 MG NEB SCH ×2 (08:55→19:30)
[2021-07-31] MEDS: LOVENOX INJ 40 MG SYR SC SCH (09:15)
[2021-07-31] MEDS: ZITHROMAX INJ 500 MG VIAL 250 MG in D5W 250 ML IV 250 ML IV SCH (09:15)
[2021-07-31] MEDS: PROTONIX INJ 40 MG VIAL IVP SCH (09:16)
[2021-07-31] MEDS ORDERED: NS 500 ML IV 500 ML with AREDIA 90 MG IV ONE ×2 (10:00)
[2021-07-31] MEDS: MVI IV SCH ×6 (11:59→20:55)
[2021-07-31] MEDS: [UNRECOGNIZED DRUG - OTHER] IV SCH ×6 (11:59→20:55)
[2021-07-31] MEDS: CLINIMIX IV SCH ×6 (11:59→20:55)
[2021-08-01] MEDS: MORPHINE SULFATE INJ 2 MG INJ IVP PRN ×3 (03:10→12:35)
[2021-08-01] MEDS: [UNRECOGNIZED DRUG - OTHER] IV SCH ×6 (04:42→21:50)
[2021-08-01] MEDS: MVI IV SCH ×6 (04:42→21:50)
[2021-08-01] MEDS: CLINIMIX IV SCH ×6 (04:42→21:50)
[2021-08-01 06:45] LABS: BASOPHILS # (AUTO) 0.1 X10^3/uL (0.0-0.1); BASOPHILS % (AUTO) 0.4 % (0.2-1.0); EOSINOPHILS # (AUTO) 0.3 x10^3/uL (0.0-0.2); EOSINOPHILS % (AUTO) 1.6 % (0.9-2.9); HEMATOCRIT 49.4 % (42.0-54.0); HEMOGLOBIN 16.2 g/dL (13.5-18.0); LYMPHOCYTES # (AUTO) 0.6 X10^3/uL (1.3-2.9); LYMPHOCYTES % (AUTO) 3.4 % (21.0-51.0); MEAN CORPUSCULAR HGB CONC 32.8 g/dL (33.0-35.0); MEAN CORPUSCULAR VOLUME 85.5 fL (80.0-100.0); MEAN PLATELET VOLUME 9.1 fL (7.4-11.0); MONOCYTES # (AUTO) 0.8 x10^3/uL (0.3-0.8); MONOCYTES % (AUTO) 4.7 % (0.0-13.0); NEUTROPHILS # (AUTO) 15.6 x10^3/uL (2.2-4.8); NEUTROPHILS % (AUTO) 89.9 % (42.0-75.0); PLATELET COUNT 100 X10^3/uL (150.0-450.0); RED BLOOD COUNT 5.78 X10^6/uL (4.7-6.0); RED CELL DISTRIBUTION WIDTH 16.5 % (11.6-16.5); WHITE BLOOD COUNT 17.3 X10^3/uL (3.6-10.0)
[2021-08-01 06:59] LABS: ALANINE AMINOTRANSFERASE 49 Units/L (12-78); ALBUMIN 1.8 g/dL (3.4-5.0); ALKALINE PHOSPHATASE 720 Units/L (46-116); ASPARTATE AMINO TRANSFERASE 111 Units/L (15-37); BLOOD UREA NITROGEN 18 mg/dL (7-18); CALCIUM 10.9 mg/dL (8.5-10.1); CARBON DIOXIDE 33.3 mmol/L (21-32); CHLORIDE 107 mmol/L (98-107); COR CA(FOR HYPOALB) 12.7 mg/dL (8.5-10.1); COR NA(FOR HYPERGLY) 143 mmol/L (136-145); CREATININE 0.68 mg/dL (0.70-1.30); SODIUM 143 mmol/L (136-145); TOTAL PROTEIN 6.4 g/dL (6.4-8.2); eGFR NON BLACK RACES > 60 (>60)
[2021-08-01] MEDS: BROVANA IN SCH ×2 (08:05→21:05)
[2021-08-01] MEDS: PULMICORT NEB TX 0.5 MG NEB SCH ×2 (08:05→21:05)
[2021-08-01 08:08] LABS: MAGNESIUM 1.8 mg/dL (1.7-2.9); PHOSPHORUS 1.7 mg/dL (2.6-4.7)
[2021-08-01] MEDS: PROTONIX INJ 40 MG VIAL IVP SCH (08:52)
[2021-08-01] MEDS: ZITHROMAX INJ 500 MG VIAL 250 MG in D5W 250 ML IV 250 ML IV SCH (08:56)
[2021-08-01] MEDS: LOVENOX INJ 40 MG SYR SC SCH (08:57)
--- NOTE | 2021-08-01 13:05 | RAD ---
HISTORYCOVID PNEUMONIASTUDYCHEST, 1 [id number]/18/2021FINDINGSAbnormal opacity in the left and right lung could be pneumonia. The findings have progressed since the prior study.Possible small left effusion. No pneumothorax.Heart size is normal.Bones are unremarkable.Right subclavian central venous catheter is in the expected location of the superior vena cava.IMPRESSION1. Progressed pneumoniaElectronically signed by: Nura Abraham (Aug 01, 2021 13:03:36)
[2021-08-02 06:19] LABS: BLOOD UREA NITROGEN 24 mg/dL (7-18); CALCIUM 10.6 mg/dL (8.5-10.1); CARBON DIOXIDE 34.2 mmol/L (21-32); CHLORIDE 109 mmol/L (98-107); COR NA(FOR HYPERGLY) 143 mmol/L (136-145); CREATININE 0.57 mg/dL (0.70-1.30); SODIUM 142 mmol/L (136-145); eGFR NON BLACK RACES > 60 (>60)
[2021-08-02 08:22] LABS: BASOPHILS # (AUTO) 0.1 X10^3/uL (0.0-0.1); BASOPHILS % (AUTO) 0.4 % (0.2-1.0); EOSINOPHILS # (AUTO) 0.3 x10^3/uL (0.0-0.2); EOSINOPHILS % (AUTO) 1.2 % (0.9-2.9); HEMATOCRIT 47.9 % (42.0-54.0); HEMOGLOBIN 15.4 g/dL (13.5-18.0); LYMPHOCYTES # (AUTO) 0.5 X10^3/uL (1.3-2.9); LYMPHOCYTES % (AUTO) 2.3 % (21.0-51.0); MEAN CORPUSCULAR HEMOGLOBIN 28.3 pg (27.0-34.0); MEAN CORPUSCULAR HGB CONC 32.2 g/dL (33.0-35.0); MEAN CORPUSCULAR VOLUME 87.8 fL (80.0-100.0); MEAN PLATELET VOLUME 9.7 fL (7.4-11.0); MONOCYTES % (AUTO) 4.7 % (0.0-13.0); NEUTROPHILS % (AUTO) 91.4 % (42.0-75.0); PLATELET COUNT 100 X10^3/uL (150.0-450.0); RED BLOOD COUNT 5.46 X10^6/uL (4.7-6.0); RED CELL DISTRIBUTION WIDTH 16.5 % (11.6-16.5); WHITE BLOOD COUNT 21.9 X10^3/uL (3.6-10.0)
[2021-08-02 09:00] LABS: PLATELET MORPHOLOGY COMMENT NORMAL (NORMAL)
[2021-08-02] MEDS: PULMICORT NEB TX 0.5 MG NEB SCH ×2 (09:00→20:10)
[2021-08-02] MEDS: BROVANA IN SCH ×2 (09:00→20:10)
[2021-08-02] MEDS: PROTONIX INJ 40 MG VIAL IVP SCH (09:02)
[2021-08-02] MEDS: ZITHROMAX INJ 500 MG VIAL 250 MG in D5W 250 ML IV 250 ML IV SCH (09:03)
[2021-08-02] MEDS: LOVENOX INJ 40 MG SYR SC SCH (09:03)
[2021-08-02] MEDS: MORPHINE SULFATE INJ 2 MG INJ IVP PRN (09:04)
[2021-08-02] MEDS: CLINIMIX IV SCH ×6 (11:16→22:35)
[2021-08-02] MEDS: MVI IV SCH ×6 (11:16→22:35)
[2021-08-02] MEDS: [UNRECOGNIZED DRUG - OTHER] IV SCH ×6 (11:16→22:35)
[2021-08-03 05:52] LABS: CALCIUM 10.1 mg/dL (8.5-10.1); CARBON DIOXIDE 31.1 mmol/L (21-32); CREATININE 1.69 mg/dL (0.70-1.30)
[2021-08-03] MEDS: PULMICORT NEB TX 0.5 MG NEB SCH (08:15)
[2021-08-03] MEDS: BROVANA IN SCH (08:15)
[2021-08-03] MEDS: PROTONIX INJ 40 MG VIAL IVP SCH (08:30)
[2021-08-03] MEDS: ZITHROMAX INJ 500 MG VIAL 250 MG in D5W 250 ML IV 250 ML IV SCH (08:35)
[2021-08-03] MEDS ORDERED: CLINIMIX 5 %/20 % 1,000 ML with MVI INJ (ADULT) 10 ML IV SCH ×2 (09:00)
[2021-08-03] MEDS: LOVENOX INJ 40 MG SYR SC SCH (10:23)
--- NOTE | 2021-08-03 12:57 | DR.UPDATE ---
H&P Update History and Physical Update: History and Physical reviewed and patient examined. Yes with the following: PROGRESS PNEUMONIA IN INCREASED GENERAL DECLINE. PT IS UNRESPONSIVE TO BOTH VERBAL AND PAINFUL STIMULI. FAMILY SIGNED A DNR AND REQUEST GIP HOSPICE CARE. KRISTEN CONSULTED. Prescription drug monitoring program results: PDMP reviewed and no concerns identified H&P Reviewed: Yes Patient was examined?: Yes
[2021-08-03 17:05] VITALS: BP 38/22
[2021-08-03] MEDS: MORPHINE SULFATE INJ 2 MG INJ IVP PRN (19:35)
== END 2021-08-03 14:55 | disposition hospice, inpatient (51) | DRG 177 ==
LOC: ER 15:30 → OBS 15:30 → MED/SURG 21:16
PROVIDERS: ADMIT Internal Medicine; ATTEND Internal Medicine
DX: Z99.81 Dependence on supplemental oxygen; R41.82 Altered mental status, unspecified; Z66 Do not resuscitate; J12.82 Pneumonia due to coronavirus disease 2019; C19 Malignant neoplasm of rectosigmoid junction; Z93.3 Colostomy status; U07.1 COVID-19; C79.9 Secondary malignant neoplasm of unspecified site; E86.0 Dehydration; R26.89 Other abnormalities of gait and mobility; Z78.1 Physical restraint status; R62.7 Adult failure to thrive; R09.02 Hypoxemia

== ENCOUNTER 2021-08-03 14:55 | Inpatient (IN) ==
[2021-08-03] MEDS ORDERED: ATIVAN INJ 2 MG VIAL IVP PRN (18:02)
[2021-08-03] MEDS: MORPHINE SULFATE INJ 2 MG INJ IVP PRN ×2 (19:32→22:21)
[2021-08-03 23:41] VITALS: BP 33/17
== END 2021-08-04 02:30 | disposition expired | DRG 177 ==
LOC: MED/SURG 14:55
PROVIDERS: ADMIT Internal Medicine; ATTEND Internal Medicine
DX: U07.1 COVID-19; I46.8 Cardiac arrest due to other underlying condition; J12.82 Pneumonia due to coronavirus disease 2019; R06.02 Shortness of breath; R62.7 Adult failure to thrive; C79.9 Secondary malignant neoplasm of unspecified site; R26.89 Other abnormalities of gait and mobility; R09.02 Hypoxemia; C19 Malignant neoplasm of rectosigmoid junction